=== PATIENT | female | born 1975 | race African-American/Black ===

== ENCOUNTER 2016-12-26 01:40 | Emergency (ER) | payer OTHER ==
--- NOTE | ~2016-12-26 | CR281 ---
[facility] A Service of [facility] & [facility] RADIOLOGY TEXT RESULTS PATIENT: VIPUL SCHWAB LOCATION: [facility] : 71 UNIT #: [id number] AGE: [address]: Bonilla Luna MD SEX: F ORDER DR: [id number] [facility] [address] [place], [place] [address] [id number] E MR#: [id number] Acc #: [id number] NAME: VIPUL SCHWAB : 1975 SEX: F STUDY DATE/TIME: 12/25/2016 22:48 UNIT: [facility] ROOM: STUDY DESCRIPTION: CR Wrist Min 3 View Lt Attending Physician: Bonilla Luna M.D. Ordering Physician: Bonilla Luna M.D. Primary Care Physician: No Primary Care Physician MEDICAL IMAGING REPORT This report is preliminary unless electronic signature is present EXAM 3 views of the left wrist Date: 12/25/2016 HISTORY Left hand and wrist pain and swelling after trying to catch herself while falling today. FINDINGS No acute displaced fracture seen. There is mild cortical irregularity at the dorsum of the radius which could represent small cortical buckle abnormality. No retained radiopaque foreign body. Radiocarpal alignment is satisfactory. IMPRESSION 1. Mild cortical irregularity at the dorsum of the right distal radius which may represent a small cortical buckle type injury. No displaced fracture is seen. 2. Normal radiocarpal alignment. Dictated by... Rachell Baugh M.D. THIS IS AN ELECTRONICALLY VERIFIED REPORT Rachell Baugh M.D. at 12/26/2016 2:09 PM [facility]/mukesh TD: 12/26/2016 10:18 JOB #: [id number] MEDICAL IMAGING REPORT COPY
--- NOTE | ~2016-12-26 | CR141 ---
[facility] A Service of [facility] & [facility] RADIOLOGY TEXT RESULTS PATIENT: VIPUL SCHWAB LOCATION: [facility] : 71 UNIT #: [id number] AGE: [address]: Bonilla Luna MD SEX: F ORDER DR: [id number] [facility] [address] [place], [place] [address] [id number] E MR#: [id number] Acc #: [id number] NAME: VIPUL SCHWAB : 1975 SEX: F STUDY DATE/TIME: 12/25/2016 22:46 UNIT: [facility] ROOM: STUDY DESCRIPTION: CR Hand Min 3 Views Lt Attending Physician: Bonilla Luna M.D. Ordering Physician: Bonilla Luna M.D. Primary Care Physician: Primary Care Physician No MEDICAL IMAGING REPORT This report is preliminary unless electronic signature is present EXAM 3 views of the left hand, 12/25/2016 HISTORY Left hand and wrist pain and swelling after trying to catch herself while falling today. COMPARISON None FINDINGS AP, lateral, and oblique projections of the hand show good mineralization with normal carpal, metacarpal, and phalangeal anatomy without indication of fracture, dislocation, or soft tissue radiopaque foreign body. IMPRESSION Normal left hand. Dictated by... Rachell Baugh M.D. THIS IS AN ELECTRONICALLY VERIFIED REPORT Rachell Baugh M.D. at 12/26/2016 2:09 PM [facility]ata TD: 12/26/2016 10:17 JOB #: [id number] MEDICAL IMAGING REPORT COPY
== END 2016-12-26 02:05 | disposition home or self-care (01) ==
LOC: CED 01:40
DX: S52.502A Unspecified fracture of the lower end of left radius, initial encounter for closed fracture (principal); J45.909 Unspecified asthma, uncomplicated; W18.09XA Striking against other object with subsequent fall, initial encounter; Y92.009 Unspecified place in unspecified non-institutional (private) residence as the place of occurrence of the external cause
CPT/HCPCS: 29125; 73110; 73130; 99283

== ENCOUNTER 2017-01-08 05:19 | Emergency (ER) | payer OTHER ==
--- NOTE | ~2017-01-08 | CT71 ---
[facility] A Service of [facility] RADIOLOGY TEXT RESULTS PATIENT: VIPUL SCHWAB LOCATION: [facility] : 71 UNIT #: [id number] AGE: [address]: Angus Em MD SEX: F ORDER DR: [id number] [facility] [address] [place], [place] [address] [id number] E MR#: [id number] Acc #: [id number] NAME: VIPUL SCHWAB : 1975 SEX: F STUDY DATE/TIME: 01/08/2017 6:52 UNIT: [facility] ROOM: STUDY DESCRIPTION: CT Head Wo Contrast Attending Physician: Angus Em M.D. Ordering Physician: To Huynh M.D. Primary Care Physician: Primary Care Physician No MEDICAL IMAGING REPORT This report is preliminary unless electronic signature is present EXAM Head CT no contrast, 01/08/2017 INDICATION 41-year-old female with headache on the right side since yesterday. No known injury. History of asthma. TECHNIQUE Noncontrast CT of the brain was performed. This CT exam was performed with one or more of the following radiation dose reduction techniques: automatic exposure control, adjustment of mA and/or kV according to patient size, and iterative reconstruction. COMPARISON We have no comparison studies. FINDINGS CT BRAIN: Sulci and ventricles demonstrate mild generalized atrophy and ventricular prominence felt to be in proportion to the degree of atrophy. No midline shift. No evidence of acute intracranial hemorrhage. There is no mass, mass effect or edema to suggest acute infarct. No extraaxial fluid collections are identified. Globes are intact. Bones intact. Sinuses clear. IMPRESSION 1. No clearly acute intracranial process. No evidence of acute intracranial hemorrhage. 2. Mild generalized atrophy. We have no comparisons. Dictated by... Garland Garcia M.D. [facility] A Service of [facility] RADIOLOGY TEXT RESULTS PATIENT: VIPUL SCHWAB LOCATION: [facility] : 71 UNIT #: [id number] AGE: [address]: Angus Em MD SEX: F ORDER DR: THIS IS AN ELECTRONICALLY VERIFIED REPORT Garland Garcia M.D. at 01/08/2017 2:33 PM [facility] TD: 01/08/2017 12:36 JOB #: [id number] MEDICAL IMAGING REPORT COPY
== END 2017-01-08 07:53 | disposition home or self-care (01) ==
LOC: CFTX 05:19
DX: R51 Headache (principal); J02.0 Streptococcal pharyngitis; J45.909 Unspecified asthma, uncomplicated
CPT/HCPCS: 70450; 84703; 87880; 96374; 96375; 99284; J1200; J2765; J2930